=== PATIENT | female | born 1960 | race Caucasian/White ===

== ENCOUNTER 2016-09-12 12:47 | Observation (INO) ==
[2016-09-12] MEDS ORDERED: 0.9 % SODIUM CHLORIDE 1,000 ML IV ONE ×2 (12:57→12:59)
[2016-09-12] MEDS ORDERED: ACETAMINOPHEN 325 MG TABLET PO ONE (12:59)
[2016-09-12] MEDS ORDERED: OSELTAMIVIR PHOSPHATE 75 MG CAPSULE PO ONE (14:00)
[2016-09-12 14:09] LABS: Basophils # (Auto) 0 K/mcL (0.0-0.3); Basophils % (Auto) 0 % (0.0-2.0); Eosinophils # (Auto) 0 K/mcL (0.0-0.7); Eosinophils % (Auto) 0.1 % (0.0-7.0); Granulocytes % (Auto) 86.7 % (38.0-78.0); Lymphocytes # (Auto) 0.6 K/mcL (1.5-4.8); Lymphocytes % (Auto) 6.1 % (15.5-49.0); Mean Cell Volume 93.6 fL (80.0-100.0); Mean Corpuscular HGB Conc 32.2 g/dL (31.0-36.0); Mean Corpuscular Hemoglobin 30.1 pg (26.0-34.0); Monocytes # (Auto) 0.7 K/mcL (0.1-0.9); Monocytes % (Auto) 7.1 % (1.0-9.0); Platelet Count 235 K/mcL (140-440); RBC 5.06 M/mcL (4.00-5.20); Red Cell Distribution Width 13.2 % (11.5-14.5)
[2016-09-12 14:23] LABS: Appearance,Urine HAZY; Bacteria,Urine 0 /hpf (0); Bilirubin,Urine NEG (NEG); Color,Urine YELLOW; Glucose,Urine (UA) NEGATIVE (NEG); Leukocyte Esterase,Urine NEG /uL (NEG); Mucus,Urine FEW /hpf (0); Nitrate,Urine NEG (NEG); Protein,Urine NEG (NEG); Specific Gravity,Urine 1.026 (1.000-1.035); Urine Amorphous Crystals FEW /hpf (0); Urine Blood NEG mg/dL (<0.03); Urine RBC 2 /hpf (0-1); Urine Squamous Epithelial Cell 1 /hpf (0-4); Urine WBC 1 /hpf (0-4); Urobilinogen,Urine NEG (NEG)
--- NOTE | 2016-09-12 14:25 | XRay Report ---
CLINICAL INFORMATION: Fever COMPARISON: 05/26/2015 FINDINGS:The heart size, mediastinum and pulmonary vessels are unremarkable. The lungs are clear. There are no effusions. The bones and soft tissues are within normal limits. IMPRESSION: Normal chest. Interpreted and Authenticated by: Kevin Cardozo 09/12/16
[2016-09-12 14:27] LABS: ALT/SGPT 38 U/l (0-40); Albumin 4.5 gm/dL (3.2-5.2); Albumin/Globulin Ratio 1.6 (1.0-2.3); Alkaline Phosphatase 80 U/L (39-117); Blood Urea Nitrogen 15 mg/dl (6-20)
--- NOTE | 2016-09-12 14:49 | Emergency Department Note ---
Fever HPI - General Chief Complaint: Fever Stated Complaint: weakness, fever Time Seen by Provider: 09/12/16 12:51 Source: patient, EMS Mode of arrival: EMS Limitations: no limitations - History of Present Illness HPI Narrative: Patient seen yesterday after a fall, returns today. Baseline marginal independent status, history of MS progressive. Brought in by ambulance due to fever, malaise, unable to care for herself. Incontinent and soiled. Patient listless, poor historian. - Related Data Home Medications Medication Instructions Recorded Confirmed FLUoxetine HCL [PROzac] 40 mg PO DAILY 05/26/15 09/12/16 Gabapentin [Neurontin] 300 mg PO DAILY 05/26/15 09/12/16 OLANZapine [Zyprexa] 7.5 mg PO DAILY 05/26/15 09/12/16 buPROPion HCL [Bupropion Xl] 300 mg PO DAILY 05/26/15 09/12/16 Simvastatin [Zocor] 40 mg PO HS 09/12/16 09/12/16 levETIRAcetam [Levetiracetam] 500 mg PO DAILY 09/12/16 09/12/16 Allergies Allergy/AdvReac Type Severity Reaction Status Date / Time clindamycin Allergy Verified 09/11/16 11:59 Review of Systems Limitations: ROS unobtainable due to patients medical condition Fever PMH - Past Medical History Medical history: Reports: other (multiple sclerosis, advanced) Surgical history ED: Reports: other (unable to obtain history) Family history: Reports: unable to obtain - Social History smoking status: Never smoker Physical Exam - General Limitations: no limitations General appearance: lethargic, other (slowed mentation, hypersomnolent) - Head Head exam: atraumatic - Eye Eye exam: Present: normal appearance - ENT ENT exam: mucous membranes moist - Neck Neck exam: Present: normal inspection. Absent: lymphadenopathy - Chest Chest inspection: Present: normal inspection - Respiratory Respiratory exam: Present: normal lung sounds bilaterally. Absent: respiratory distress - Cardiovascular Cardiovascular exam: Present: regular rate, normal rhythm. Absent: systolic murmur - Abdominal Exam Abdominal exam: Present: soft. Absent: tenderness - External exam: Present: normal external exam, other (incontinent and soiled) - Extremities Exam Extremities exam: Present: other (laccid lower extremities, 2+ edema) - Back Exam Back exam: Present: normal inspection - Neurological Exam Neurological exam: Absent: alert, oriented X3 - Psychiatric Psychiatric exam: Present: flat affect - Skin Skin exam: Present: diaphoresis, other (cool, no pallor) Course Vital Signs Temperature 103.3 F H 09/12/16 12:50 Pulse Rate 97 H 09/12/16 12:50 Respiratory Rate 24 09/12/16 12:50 Blood Pressure 148/81 09/12/16 12:50 Pulse Oximetry (%) 93 09/12/16 12:50 Temperature 103.3 F H 09/12/16 13:30 Pulse Rate 96 H 09/12/16 14:24 Respiratory Rate 20 09/12/16 14:24 Blood Pressure 143/71 09/12/16 14:24 Pulse Oximetry (%) 98 09/12/16 14:24 Fever - Lab Data Lab results reviewed: Yes I reviewed the patient's lab results. Result diagrams: 09/12/16 13:20 09/12/16 13:20 Lab Results 09/12/16 09/12/16 09/12/16 Range/Units 13:20 13:20 13:20 WBC 9.5 (4.5-11.0) K/mcL RBC 5.06 (4.00-5.20) M/mcL Hgb 15.2 H (12.0-15.0) g/dL Hct 47.3 (36.0-48.0) % MCV 93.6 (80.0-100.0) fL MCH 30.1 (26.0-34.0) pg MCHC 32.2 (31.0-36.0) g/dL RDW 13.2 (11.5-14.5) % Plt Count 235 (140-440) K/mcL MPV 7.9 (7.4-10.4) fL Gran % 86.7 H (38.0-78.0) % Lymph % (Auto) 6.1 L (15.5-49.0) % Lucas % (Auto) 7.1 (1.0-9.0) % Eos % (Auto) 0.1 (0.0-7.0) % Baso % (Auto) 0 (0.0-2.0) % Gran # 8.2 H (1.8-8.0) K/mcL Lymph # 0.6 L (1.5-4.8) K/mcL Lucas # 0.7 (0.1-0.9) K/mcL Eos # 0 (0.0-0.7) K/mcL Baso # 0 (0.0-0.3) K/mcL VBG Lactic Acid 1.5 (0.5-2.2) mmol/L Sodium 137 (133-145) mmol/L Potassium 4.1 (3.3-5.1) mmol/L Chloride 96 (96-108) mmol/L Carbon Dioxide 26 (22-30) mmol/L Anion Gap 15.0 (8-16) BUN 15 (6-20) mg/dl Creatinine 0.8 (0.6-1.1) mg/dl GFR Calculation 81 Glucose 128 H (70-105) mg/dL Calcium 9.1 (8.6-10.4) mg/dl Total Bilirubin 0.4 (0.0-1.0) mg/dL AST 26 (0-37) U/l ALT 38 (0-40) U/l Alkaline Phosphatase 80 (39-117) U/L Total Protein 7.4 (5.9-8.4) gm/dL Albumin 4.5 (3.2-5.2) gm/dL Globulin 2.9 (2.2-3.7) gm/dL Albumin/Globulin Ratio 1.6 (1.0-2.3) Urine Color Urine Appearance Urine pH (5.0-9.0) Ur Specific [place] (1.000-1.035) Urine Protein (NEG) mg/dL Urine Glucose (UA) (NEG) mg/dL Urine Ketones (NEG) mg/dL Urine Occult Blood (<0.03) mg/dL Urine Nitrate (NEG) Urine Bilirubin (NEG) mg/dL Urine Urobilinogen (NEG) mg/dL Ur Leukocyte Esterase (NEG) /uL Urine RBC (0-1) /hpf Urine WBC (0-4) /hpf Ur Squamous Epith Cells (0-4) /hpf Amorphous Crystals (0) /hpf Urine Bacteria (0) /hpf Urine Mucus (0) /hpf Ur Culture Indicated? 09/12/16 Range/Units 13:55 WBC (4.5-11.0) K/mcL RBC (4.00-5.20) M/mcL Hgb (12.0-15.0) g/dL Hct (36.0-48.0) % MCV (80.0-100.0) fL MCH (26.0-34.0) pg MCHC (31.0-36.0) g/dL RDW (11.5-14.5) % Plt Count (140-440) K/mcL MPV (7.4-10.4) fL Gran % (38.0-78.0) % Lymph % (Auto) (15.5-49.0) % Lucas % (Auto) (1.0-9.0) % Eos % (Auto) (0.0-7.0) % Baso % (Auto) (0.0-2.0) % Gran # (1.8-8.0) K/mcL Lymph # (1.5-4.8) K/mcL Lucas # (0.1-0.9) K/mcL Eos # (0.0-0.7) K/mcL Baso # (0.0-0.3) K/mcL VBG Lactic Acid (0.5-2.2) mmol/L Sodium (133-145) mmol/L Potassium (3.3-5.1) mmol/L Chloride (96-108) mmol/L Carbon Dioxide (22-30) mmol/L Anion Gap (8-16) BUN (6-20) mg/dl Creatinine (0.6-1.1) mg/dl GFR Calculation Glucose (70-105) mg/dL Calcium (8.6-10.4) mg/dl Total Bilirubin (0.0-1.0) mg/dL AST (0-37) U/l ALT (0-40) U/l Alkaline Phosphatase (39-117) U/L Total Protein (5.9-8.4) gm/dL Albumin (3.2-5.2) gm/dL Globulin (2.2-3.7) gm/dL Albumin/Globulin Ratio (1.0-2.3) Urine Color Yellow Urine Appearance Hazy Urine pH 5.0 (5.0-9.0) Ur Specific [place] 1.026 (1.000-1.035) Urine Protein Neg (NEG) mg/dL Urine Glucose (UA) Negative (NEG) mg/dL Urine Ketones 5/tr A (NEG) mg/dL Urine Occult Blood Neg (<0.03) mg/dL Urine Nitrate Neg (NEG) Urine Bilirubin Neg (NEG) mg/dL Urine Urobilinogen Neg (NEG) mg/dL Ur Leukocyte Esterase Neg (NEG) /uL Urine RBC 2 H (0-1) /hpf Urine WBC 1 (0-4) /hpf Ur Squamous Epith Cells 1 (0-4) /hpf Amorphous Crystals Few A (0) /hpf Urine Bacteria 0 (0) /hpf Urine Mucus Few (0) /hpf Ur Culture Indicated? No - Radiology Data Radiology results reviewed: Yes I reviewed the patient's radiology results. no acute infiltrate Disposition Clinical Impression: Influenza, Multiple sclerosis, Weakness generalized Summary: patient's care accepted by Dr. Dill Disposition: Xfer As Inpt ([facility]) Condition: Fair Referrals: Sridhar Ricketts MD [Primary Care Provider] -
[2016-09-12] MEDS ORDERED: ONDANSETRON 4 MG/2 ML VIAL ONE (16:21)
[2016-09-12] MEDS ORDERED: BISACODYL 10 MG SUPP.RECT PR PRN ×2 (16:44→17:13)
[2016-09-12] MEDS ORDERED: ONDANSETRON 4 MG/2 ML VIAL IV PRN ×2 (16:44→17:13)
[2016-09-12] MEDS ORDERED: MAGNESIUM HYDROXIDE 30 ML ORAL.SUSP PO PRN ×2 (16:44→17:13)
[2016-09-12] MEDS ORDERED: FLEETS ADULT ENEMA PR PRN ×2 (16:44→17:13)
[2016-09-12] MEDS ORDERED: ACETAMINOPHEN 325 MG TABLET PO PRN (16:44)
--- NOTE | 2016-09-12 16:48 | Internal Med History&Physical ---
Medical - H&P: [facility] Patient information: Note initiated : 09/12/16 at 4:45 pm Service Date, if different from initiated Date: [] Patient: Charley Hidalgo a 56 y/o F admitted on for weakness, fever. Chief Complaint: [] Chief complaint: Recurrent falls/ Fever History of present illness: Ms. Hidalgo is a 56 year old female who presented to the ER yesterday and today for recurrent falls and fever The patient has Multiple sclerosis, seems progressive type and has cognitive dysfunction. She is a poor history bag loader and due to her memory noted that she does not remember much. She has some correction memory, but short term memory is not very good, not sure why she is in the ER, not sure if she was here yesterday. Thinks that something is wrong with her electrolytes. Her sister was present who noted that this is near her baseline, but she seems to have gotten worse now over the last couple of weeks, she has had 2 falls, one 2 weeks ago and one yesterday. She was here yesterday and was discharged back home with OT follow up. Today she presents again brought in by EMS for fever of 103.7, and progressive weakness. She denies any other complaints. But nursing noted her to be soiled in her clothes. She had one episode of vomiting in the ER. I called the patients neurologist Dr Bertin Figueroa, who knows the patient well, noted that she was daignosed MS recently over last 8 yrs, which usually indicates a poor prognosis. The patient has a poor functional status, usually needs a four wheel walker to ambulate and WC at times. I reviewed the case with her and she believes that the patient likely has worsening of MS symptoms due to her fever, and not a acute relapse of MS. She would like to be notified if new lesions of MS are found on the MRI in which case she would like to use 1gm solumedrol x 3 days. Code status is full code for now, given that her sister was not sure what she wanted and I do not think we can ask the patient in her current mental condition. ROS unobtainable: due to mental status Medical - H&P: [facility] Medical history: Medical History Influenza (Acute) Multiple sclerosis (Acute) Weakness generalized (Acute) Chest pain, pleuritic (Acute) Fall (Acute) Pertinent family history: unable to review due to mental condition. Social history: lives by self has help at home usually has a 4 wheel walker at home. denies drugs, etoh or smoking Medical - H&P: Meds Home Medications Medication Instructions Recorded Confirmed Type FLUoxetine HCL [PROzac] 40 mg PO DAILY 05/26/15 09/12/16 History Gabapentin [Neurontin] 300 mg PO DAILY 05/26/15 09/12/16 History OLANZapine [Zyprexa] 7.5 mg PO DAILY 05/26/15 09/12/16 History buPROPion HCL [Bupropion Xl] 300 mg PO DAILY 05/26/15 09/12/16 History Simvastatin [Zocor] 40 mg PO HS 09/12/16 09/12/16 History levETIRAcetam [Levetiracetam] 500 mg PO DAILY 09/12/16 09/12/16 History Allergies Allergy/AdvReac Type Severity Reaction Status Date / Time clindamycin Allergy Verified 09/11/16 11:59 Medical - H&P: Exam - Constitutional Vitals: Temp Pulse Resp BP Pulse Ox 101.7 F H 102 H 24 144/96 95 09/12/16 16:17 09/12/16 16:17 09/12/16 16:17 09/12/16 16:17 09/12/16 16:17 General appearance: morbidly obese, no acute distress - Head Head exam: Present: atraumatic, normal inspection, normocephalic - Eye Eye exam: Present: PERRL. Absent: periorbital swelling, periorbital tenderness , scleral icterus - ENT ENT exam: Present: mucous membranes dry - Neck Neck exam: Present: normal inspection - Respiratory Respiratory exam: Present: normal respiratory exam. Absent: accessory muscle use, respiratory distress, rhonchi, stridor, wheezes - Cardiovascular Cardiovascular exam: Present: normal rate and rhythm, +S1, +S2 - GI/Abdominal GI/Abdominal exam: Present: normal bowel sounds, soft. Absent: firm, guarding, tenderness - Extremities Exam Extremities exam: Absent: pedal edema, tenderness - Back Exam Back exam: Present: normal inspection. Absent: paraspinal tenderness - Neurological Exam Additional comments: aoox2 aware of place and self able to move all extremities, approx 3/5 strength sensory system noted to be decreased on left arm, to coarse touch, pt not sure if new or old. reflex brisk in the knees, plantars everted pupils reactive to light, able to see light in both eyes. CN nerrves intact. - Psychiatric Psychiatric exam: Present: flat affect - Skin Skin exam: Present: warm. Absent: rash, vesicles Medical - H&P: Reslt - Labs CBC & Chem 7: 09/12/16 13:20 09/12/16 13:20 Labs: Short CBC 09/12/16 Range/Units 13:20 WBC 9.5 (4.5-11.0) K/mcL Hgb 15.2 H (12.0-15.0) g/dL Hct 47.3 (36.0-48.0) % Plt Count 235 (140-440) K/mcL BMP 09/12/16 13:20 Sodium 137 Potassium 4.1 Chloride 96 Carbon Dioxide 26 BUN 15 Creatinine 0.8 Glucose 128 H Calcium 9.1 Liver Function 09/12/16 Range/Units 13:20 Total Bilirubin 0.4 (0.0-1.0) mg/dL AST 26 (0-37) U/l ALT 38 (0-40) U/l Alkaline Phosphatase 80 (39-117) U/L Albumin 4.5 (3.2-5.2) gm/dL Urine 09/12/16 Range/Units 13:55 Urine Color Yellow Urine Appearance Hazy Urine pH 5.0 (5.0-9.0) Ur Specific [place] 1.026 (1.000-1.035) Urine Protein Neg (NEG) mg/dL Urine Glucose (UA) Negative (NEG) mg/dL Medical - H&P: A/P (1) Influenza Current visit: Yes Status: Acute (2) Multiple sclerosis Current visit: Yes Status: Acute (3) Weakness generalized Current visit: Yes Status: Acute - Narrative A/P Narrative: Pt has Influenza which is likely the source of her WEakness She lives by herself in home and needs extensive help to carry out ADL given her fever and worsening condition, she was unable to care for her self MS attack is possible and MRI head is being done to see if any new acute lesions are present. will treat with high dose of steroids if noted. TReat influenza with tamiflu, tylenol OT/ PT ST consult DVT hep sq bid Diet regular
[2016-09-12] MEDS: ACETAMINOPHEN 325 MG TABLET PO PRN (18:22)
[2016-09-12] MEDS ORDERED: HEPARIN 5,000 UNIT/ML VIAL SQ SCH (21:00)
[2016-09-12] MEDS ORDERED: FAMOTIDINE/PF 20 MG/2 ML VIAL IV SCH (21:00)
[2016-09-12] MEDS ORDERED: SIMVASTATIN 40 MG TABLET PO SCH (21:00)
[2016-09-12] MEDS ORDERED: OSELTAMIVIR PHOSPHATE 75 MG CAPSULE PO SCH (21:00)
[2016-09-12] MEDS: HEPARIN 5,000 UNIT/ML VIAL SQ SCH (21:12)
[2016-09-12] MEDS: FAMOTIDINE/PF 20 MG/2 ML VIAL IV SCH (21:12)
[2016-09-12] MEDS: OSELTAMIVIR PHOSPHATE 75 MG CAPSULE PO SCH (21:12)
[2016-09-12] MEDS: SIMVASTATIN 40 MG TABLET PO SCH (21:12)
[2016-09-12] MEDS: 0.9 % SODIUM CHLORIDE 10 ML SYRINGE IV SCH (21:13)
[2016-09-12] MEDS ORDERED: 0.9 % SODIUM CHLORIDE 10 ML SYRINGE IV SCH (22:00)
[2016-09-12] MEDS: IBUPROFEN 200 MG TABLET PO PRN (22:39)
[2016-09-13] MEDS: ACETAMINOPHEN 325 MG TABLET PO PRN ×3 (02:31→20:18)
[2016-09-13] MEDS: 0.9 % SODIUM CHLORIDE 10 ML SYRINGE IV SCH ×3 (05:27→20:17)
[2016-09-13 08:09] LABS: ALT/SGPT 31 U/l (0-40); Albumin 3.5 gm/dL (3.2-5.2); Albumin/Globulin Ratio 1.5 (1.0-2.3); Alkaline Phosphatase 63 U/L (39-117); Bilirubin,Direct < 0.2 mg/dL (0.0-0.3); Blood Urea Nitrogen 12 mg/dl (6-20); Gamma Glutamyl Transpeptidase 83 U/L (5-36); Magnesium 2.1 mg/dL (1.6-2.5); Phosphorous 2.9 mg/dL (2.7-4.5); Uric Acid 1.6 mg/dL (2.5-8.0)
[2016-09-13] MEDS: FAMOTIDINE/PF 20 MG/2 ML VIAL IV SCH ×2 (08:31→20:17)
[2016-09-13] MEDS: HEPARIN 5,000 UNIT/ML VIAL SQ SCH ×2 (08:31→20:17)
[2016-09-13] MEDS: buPROPion 150 MG TAB.XL.24H PO SCH (08:31)
[2016-09-13] MEDS: GABAPENTIN 300 MG CAPSULE PO SCH (08:32)
[2016-09-13] MEDS: OLANZapine 2.5 MG TABLET PO SCH (08:32)
[2016-09-13] MEDS: levETIRAcetam 500 MG TABLET PO SCH (08:32)
[2016-09-13] MEDS: FLUoxetine HCL 20 MG CAPSULE PO SCH (08:32)
[2016-09-13] MEDS: OSELTAMIVIR PHOSPHATE 75 MG CAPSULE PO SCH ×2 (08:32→20:16)
[2016-09-13] MEDS ORDERED: GABAPENTIN 300 MG CAPSULE PO SCH (09:00)
[2016-09-13] MEDS ORDERED: FLUoxetine HCL 20 MG CAPSULE PO SCH (09:00)
[2016-09-13] MEDS ORDERED: OLANZAPINE 7.5 MG PO SCH (09:00)
[2016-09-13] MEDS ORDERED: buPROPion 150 MG TAB.XL.24H PO SCH (09:00)
[2016-09-13] MEDS ORDERED: levETIRAcetam 500 MG TABLET PO SCH (09:00)
--- NOTE | 2016-09-13 10:00 | XRay Report ---
CLINICAL INFORMATION: Pain COMPARISON: None. TECHNIQUE: FINDINGS: The acromioclavicular and glenohumeral joint spaces are normal in width and alignment, without arthritic change. There is no fracture or focal osseous abnormality. Soft tissues are unremarkable. IMPRESSION: Normal exam. Interpreted and Authenticated by: Kevin Cardozo 09/13/16
[2016-09-13 10:02] LABS: Mean Cell Volume 93.4 fL (80.0-100.0); Mean Corpuscular HGB Conc 32.3 g/dL (31.0-36.0); Mean Corpuscular Hemoglobin 30.2 pg (26.0-34.0); Platelet Count 184 K/mcL (140-440); RBC 4.74 M/mcL (4.00-5.20); Red Cell Distribution Width 13.2 % (11.5-14.5)
--- NOTE | 2016-09-13 10:08 | Magnetic Resonance Report ---
CLINICAL INFORMATION: Chronic MS. Recurrent falls and fever COMPARISON: Brain MRI from three years prior - 07/14/2013. TECHNIQUE: Sagittal T1 FLAIR, axial diffusion ADC, T1 FLAIR, T2 FLAIR propeller, T2 propeller gradient, T1 post Magnevist and coronal T1 FLAIR post Magnevist images were acquired. FINDINGS: The ventricles, sulci, fissures and cisterns are symmetrically enlarged compatible with mild atrophy - more than is typically seen in a patient this age. Multiple chronic MS plaques in the deep periventricular white matter, were carefully compared the remote MR three years ago, and are unchanged. Scattered chronic plaque in the subcortical white matter of the parafalcine frontal and parietal lobes, the right pontomedullary junction, and the right middle cerebellar peduncle are also stable. There are no new plaques or regions of restricted diffusion or enhancement to suggest acute MS inflammation. The signal void in intracerebral arteries, extra-axial cranial nerves, pituitary and orbits are normal. Mild mucosal thickening left maxillary and ethmoid sinuses. IMPRESSION: 1. Scattered chronic MS plaques with confluence in the deep periventricular white matter and also scattered within the subcortical white matter, the right pontomedullary junction and right middle cerebellar peduncle are identical to a remote brain MRI three years ago. There is no evidence of acute plaque inflammation and no evidence of infarct or other superimposed neurological process. 2. Moderate right sphenoid bilateral ethmoid and mild left maxillary sinusitis - new from prior study. Interpreted and Authenticated by: Kevin Cardozo 09/13/16
[2016-09-13 10:16] LABS: Band Neutrophils % 32 % (0-10); Lymphocytes % 13 % (15-49); Monocytes % (Manual) 6 % (1-9); Platelet Estimate NORMAL (NORMAL); RBC Morphology NORMAL (NORMAL); Segmented Neutrophils % 49 % (38-78)
--- NOTE | 2016-09-13 11:00 | Internal Med Progress Note ---
Medical - PN: Subj Patient information: Note initiated : 09/13/16 at 10:57 am Service Date, if different from initiated Date: [] Patient: Charley Hidalgo 56 y/o F admitted on 09/12/16 for weakness, fever. Chief Complaint: [] Interval history: This is a 56 yr female who presented to the ER with fever and weakness, s/p falls h/o multiple sclerosis. 09/12: patient admitted to the hospital due to generalized weakness, worsening of mentation, worsening of physical condition, due to influenza and exacerbation of MS due to fever. MRI head done was negative for new lesions. Workup in the ER neg for any other focus of infection. Placed on tamiflu. 09/13: Pt was febrile overnight, not responding well to tylenol, therefore Ibuprofen was added. She responded well to ibuprofen. Plan to continue tamiflu D2/5 today. She did not do well with PT this AM, she will likely benefit from additional PT. Labs this AM unremarkable except bandemia noted on cbc. Will follow for now. She otherwise does not report any other acute condition. Plan to give BID PT, work with case management for appropriate D/C plan. likely D/C in AM if remains afebrile and improves functionality. Will also need to reverify her home med list given that she is not on any medications for MS. Pertinent ROS: Denies headache, dizziness Denies chest pain, palpitations Denies cough or shortness of breath Denies abdominal pain, nausea or vomiting. - Constitutional Vitals: Vital Signs Temp Pulse Resp BP Pulse Ox 98.7 F 87 20 120/60 93 09/13/16 08:00 09/13/16 07:50 09/13/16 08:00 09/13/16 08:00 09/13/16 08:00 Period Temp Pulse Resp BP Sys/Brennan Pulse Ox Last 24 Hr 98.7 F-104.4 F 86-97 14-20 100-126/41-69 90-95 Intake and Output 09/12/16 09/13/16 09/13/16 21:59 05:59 13:59 Intake Total 1000 / 1000 480 / 480 Output Total 850 / 850 Balance 1000 / 1000 -370 / -370 Weight 238 lb 6.4 oz Intake & Output: Intake & Output 09/12/16 09/13/16 09/13/16 21:59 05:59 13:59 Intake Total 1000 / 1000 480 / 480 Output Total 850 / 850 Balance 1000 / 1000 -370 / -370 Weight 238 lb 6.4 oz Intake: IV 1000 / 1000 Sodium Chloride 0.9% 1, 1000 / 1000 000 ml @ Wide Open IV . Q0M ONE Rx#:[id number] Oral 480 / 480 Output: Urine Catheter Amount 850 / 850 Exam: Constitutional; Afebrile, cooperative, alert, not in distress. Eyes- No icterus, No periorbital swelling Ears- Ext ear normal, hearing normal to conversation. Neck- Midline trachea, supple Respiratory system: Air Entry equal on both sides, No crackles or wheezing, no rhonchi. CVS- Rate rhythm regular, S1,S2 heard, no gallop, no rub. Abdomen- Soft nontender abdomen, no organomegaly, no tenderness, no guarding or rigidity, [employer]- AOOx1, moving all extremities, no focal deficit noted. Medical - PN: Obj Da - Labs CBC & Chem 7: 09/13/16 07:42 09/13/16 06:12 Labs: Abnormal Lab Results 09/13/16 09/13/16 07:42 06:12 Band Neutrophils % 32 H Lymphocytes % 13 L Carbon Dioxide 20 L Uric Acid 1.6 L Calcium 8.2 L GGT 83 H Lactate Dehydrogenase 281 H Meds: Medications Acetaminophen (Tylenol) 650 mg PO Q6HP PRN PRN Reason: PAIN/FEVER > 101 Last Admin: 09/13/16 02:31 Dose: 650 mg Bisacodyl (Dulcolax) 10 mg [place] Q2-3DAYS PRN PRN Reason: Constipation Bupropion HCl (Wellbutrin Xl) 300 mg PO DAILY [facility] Last Admin: 09/13/16 08:31 Dose: 300 mg Famotidine (Pepcid) 20 mg IV Q12 [facility] Last Admin: 09/13/16 08:31 Dose: 20 mg Fluoxetine HCl (Prozac) 40 mg PO DAILY [facility] Last Admin: 09/13/16 08:32 Dose: 40 mg Gabapentin (Neurontin) 300 mg PO DAILY [facility] Last Admin: 09/13/16 08:32 Dose: 300 mg Heparin Sodium (Porcine) (Heparin) 5,000 unit SQ Q12 [facility] Last Admin: 09/13/16 08:31 Dose: 5,000 unit Ibuprofen (Motrin) 400 mg PO QIDP PRN PRN Reason: Fever >101 Last Admin: 09/12/16 22:39 Dose: 400 mg Levetiracetam (Keppra) 500 mg PO DAILY [facility] Last Admin: 09/13/16 08:32 Dose: 500 mg Magnesium Hydroxide (Milk Of Magnesia) 30 ml PO DAILYP PRN PRN Reason: Constipation Olanzapine (Zyprexa) 7.5 mg PO DAILY [facility] Last Admin: 09/13/16 08:32 Dose: 7.5 mg Ondansetron HCl (Zofran) 4 mg IV Q6HP PRN PRN Reason: Nausea And Vomiting Oseltamivir Phosphate (Tamiflu) 75 mg PO BID [facility] Last Admin: 09/13/16 08:32 Dose: 75 mg Simvastatin (Zocor) 40 mg PO HS [facility] Last Admin: 09/12/16 21:12 Dose: 40 mg Sodium Biphosphate/Sodium Phosphate (Fleets Adult) 1 dose [place] Q3-4DAYS PRN PRN Reason: Constipation Sodium Chloride (Saline Flush) 10 ml IV Q8 [facility] Last Admin: 09/13/16 05:27 Dose: 10 ml Medical - PN: A/P - Time Spent With Patient Total time spent is greater than 50% in coordination of care (as documented) at patient's floor/unit and/or counseling patient: (1) Influenza Status: Acute Current Visit: Yes (2) Multiple sclerosis Status: Acute Current Visit: Yes (3) Weakness generalized Status: Acute Current Visit: Yes - Narrative A/P Narrative: IV fluids Tamiflu Continue Physical therapy. Tylenol/ Ibuprofen for fever likely d/c in AM if condition improves. Medical - PN: Qual - Stroke Symptom Onset Unknown: No - VTE Deep Vein Thrombosis/Pulmonary Embolism Present on Admission: No
[2016-09-13] MEDS: LACTATED RINGERS 1,000 ML IV SCH ×2 (11:20→23:12)
[2016-09-13] MEDS: TERIFLUNOMIDE 14 MG PO SCH (12:49)
[2016-09-13] MEDS: IBUPROFEN 200 MG TABLET PO PRN (14:47)
[2016-09-13] MEDS: SIMVASTATIN 40 MG TABLET PO SCH (20:16)
[2016-09-13] MEDS: ASPIRIN 81 MG TAB.CHEW PO SCH (20:17)
[2016-09-14] MEDS: 0.9 % SODIUM CHLORIDE 10 ML SYRINGE IV SCH (06:01)
[2016-09-14] MEDS ORDERED: PIPERACILLIN SODIUM/TAZOBACTAM 3.375 GM in DEXTROSE 5% IN WATER 50 ML IV SCH (08:00)
[2016-09-14] MEDS: FAMOTIDINE/PF 20 MG/2 ML VIAL IV SCH (09:26)
[2016-09-14] MEDS: buPROPion 150 MG TAB.XL.24H PO SCH (09:30)
[2016-09-14] MEDS: FLUoxetine HCL 20 MG CAPSULE PO SCH (09:30)
[2016-09-14] MEDS: ASPIRIN 81 MG TAB.CHEW PO SCH (09:30)
[2016-09-14] MEDS: OSELTAMIVIR PHOSPHATE 75 MG CAPSULE PO SCH (09:31)
[2016-09-14] MEDS: HEPARIN 5,000 UNIT/ML VIAL SQ SCH (09:31)
[2016-09-14] MEDS: OLANZapine 2.5 MG TABLET PO SCH (09:31)
[2016-09-14] MEDS: GABAPENTIN 300 MG CAPSULE PO SCH (09:31)
[2016-09-14] MEDS: levETIRAcetam 500 MG TABLET PO SCH (09:31)
[2016-09-14] MEDS: TERIFLUNOMIDE 14 MG PO SCH (09:32)
--- NOTE | 2016-09-14 10:52 | Discharge Summary ---
Medical - DS: Prov Patient information: Note initiated : 09/14/16 at 10:50 am Service Date, if different from initiated Date: [] Patient: Charley Hidalgo 56 y/o F admitted on 09/12/16 for Weakness, Fever/ Influenza. Chief Complaint: [] Date of admission: 09/12/16 18:00 Discharge date: 09/14/16 Primary care physician: [Dr. Sridhar Ricketts, phone [phone]] Admitting clinician: Puma Dill Attending physician on discharge: Eve Rodríguez Medical - DS: Meds - Discharge Medications Prescriptions: Amoxicillin/Potassium Clav [Augmentin] 875 mg PO Q12H #20 tablet Oseltamivir Phosphate [Tamiflu] 75 mg PO BID #7 capsule Active and Home Medications: Home Medications FLUoxetine HCL [PROzac] 40 mg PO DAILY 05/26/15 [History Confirmed 09/12/16 Last Taken Unknown] Gabapentin [Neurontin] 300 mg PO DAILY 05/26/15 [History Confirmed 09/12/16 Last Taken Unknown] OLANZapine [Zyprexa] 7.5 mg PO DAILY 05/26/15 [History Confirmed 09/12/16 Last Taken Unknown] buPROPion HCL [Bupropion Xl] 300 mg PO DAILY 05/26/15 [History Confirmed Last Taken Unknown] Aspirin [Jason Chewable Aspirin] 81 mg PO BID 09/12/16 [History Confirmed Last Taken Unknown] Simvastatin [Zocor] 40 mg PO HS 09/12/16 [History Confirmed 09/12/16 Last Taken 09/11/16 09:00] Teriflunomide [Aubagio] 14 mg PO DAILY 09/12/16 [History Confirmed 09/12/16 Last Taken Unknown] levETIRAcetam [Levetiracetam] 500 mg PO DAILY 09/12/16 [History Confirmed Last Taken Unknown] Medical - DS: Hosp Hospital course: Ms. Hidalgo is a 56 year old female September 12, 2016: History of present illness: Ms. Hidalgo is a 56 year old female who presented to the ER yesterday and today for recurrent falls and fever. The patient has Multiple sclerosis, seems progressive type and has cognitive dysfunction. She is a poor history elevator repairer and due to her memory noted that she does not remember much. She has some rat exterminator memory, but short term memory is not very good, not sure why she is in the ER, not sure if she was here yesterday. Thinks that something is wrong with her electrolytes. Her sister was present who noted that this is near her baseline, but she seems to have gotten worse now over the last couple of weeks, she has had 2 falls, one 2 weeks ago and one yesterday. She was here yesterday and was discharged back home with OT follow up. Today she presents again brought in by EMS for fever of 103.7, and progressive weakness. She denies any other complaints. But nursing noted her to be soiled in her clothes. She had one episode of vomiting in the ER. I called the patients neurologist Dr Bertin Figueroa, who knows the patient well, noted that she was daignosed MS recently over last 8 yrs, which usually indicates a poor prognosis. The patient has a poor functional status, usually needs a four wheel walker to ambulate and WC at times. I reviewed the case with her and she believes that the patient likely has worsening of MS symptoms due to her fever, and not a acute relapse of MS. She would like to be notified if new lesions of MS are found on the MRI in which case she would like to use 1gm solumedrol x 3 days. Code status is full code for now, given that her sister was not sure what she wanted and I do not think we can ask the patient in her current mental condition. September 14, 2016: this patient had a positive screen for influenza in the emergency room. She had generalized weakness and was admitted for observation. She was started on Tamifluand IV fluids. over the last 2 days her fever has gradually defervesced. She continues to be severely weak, and is nowhere near her baseline, where she could live alone, and transfer independently. -brain MRI from admission showed moderate right sphenoid and bilateral ethmoid and mild left maxillary sinusitis. there were an mass plaques noted in the white matter, without significant change from 3 years ago. Today, the patient continues to have mild confusion. she was not able to tell me initially if she had a chronic Perea catheter at home but apparently she does not. She does report significant weakness, which is worse than her baseline. She denies chest pain or shortness of breath or GI symptoms. My understanding is that she is not generally incontinent of urine at home, but was here. on review of systems today, she does note that she has a bit of a sore throat, and addition to feeling weak and a bit confused.she says she has had a mild cough, which has been minimally productive. Medical History Influenza (Acute) Multiple sclerosis (Acute) Weakness generalized (Acute) Chest pain, pleuritic (Acute) Fall (Acute) Meds: Medications Acetaminophen (Tylenol) 650 mg PO Q6HP PRN PRN Reason: PAIN/FEVER > 101 Last Admin: 09/13/16 02:31 Dose: 650 mg Bisacodyl (Dulcolax) 10 mg LA Q2-3DAYS PRN PRN Reason: Constipation Bupropion HCl (Wellbutrin Xl) 300 mg PO DAILY [facility] Last Admin: 09/13/16 08:31 Dose: 300 mg Famotidine (Pepcid) 20 mg IV Q12 [facility] Last Admin: 09/13/16 08:31 Dose: 20 mg Fluoxetine HCl (Prozac) 40 mg PO DAILY [facility] Last Admin: 09/13/16 08:32 Dose: 40 mg Gabapentin (Neurontin) 300 mg PO DAILY [facility] Last Admin: 09/13/16 08:32 Dose: 300 mg Heparin Sodium (Porcine) (Heparin) 5,000 unit SQ Q12 [facility] Last Admin: 09/13/16 08:31 Dose: 5,000 unit Ibuprofen (Motrin) 400 mg PO QIDP PRN PRN Reason: Fever >101 Last Admin: 09/12/16 22:39 Dose: 400 mg Levetiracetam (Keppra) 500 mg PO DAILY [facility] Last Admin: 09/13/16 08:32 Dose: 500 mg Magnesium Hydroxide (Milk Of Magnesia) 30 ml PO DAILYP PRN PRN Reason: Constipation Olanzapine (Zyprexa) 7.5 mg PO DAILY [facility] Last Admin: 09/13/16 08:32 Dose: 7.5 mg Ondansetron HCl (Zofran) 4 mg IV Q6HP PRN PRN Reason: Nausea And Vomiting Oseltamivir Phosphate (Tamiflu) 75 mg PO BID [facility] Last Admin: 09/13/16 08:32 Dose: 75 mg Simvastatin (Zocor) 40 mg PO HS [facility] Last Admin: 09/12/16 21:12 Dose: 40 mg Sodium Biphosphate/Sodium Phosphate (Fleets Adult) 1 dose LA Q3-4DAYS PRN PRN Reason: Constipation Sodium Chloride (Saline Flush) 10 ml IV Q8 [facility] Last Admin: 09/13/16 05:27 Dose: 10 ml allergies: Include walnuts and clindamycin. social history: The patient lives alone, but does have caregivers that come in at least 5 days a week for a couple of hours. She can normally get around in a wheelchair and does have a walker. She apparently denied drug alcohol or tobacco use. on physical exam, she is a well-developed well-nourished white female in no acute distress. neckappears supple without obvious lymphadenopathy or JVD. Cardiac exam shows regular rate and rhythm. Lungs: breath sounds are a bit on the course I today. Abdomen is soft and nontender. Extremities show no significant edema. Neurologic exam:The patient exhibits generalized weakness, although she does move her arms. The nurses tell me she needed help just turning over in bed, however. She reports she really has no strength to move her legs today, but normally does have some movement in them at baseline. assessment and plan: #1. Severe weakness. -This appears to be mainly due to an acute case of influenza. she also,however, has evidence of sinusitison her MRI, which may be acute. Because she is too weak to return home to live alone, she will be transferred to rehabilitation today, for consideration of physical and occupational therapies. The goal is to get her back to her baseline. #2. Infectious disease. She will continue 7 more days of Tamiflu, to complete a ten-day course. I will also start her on oral Augmentin, to cover for possible sinusitis. She did receive 1 dose of Zosyn today. #3.neurologic. This patient does have multiple sclerosis. Dr. Dill did speak with her neurologist, who felt that her current symptoms are more likely due to acute illness, rather than her MS. We did resume her usual multiple sclerosis medications. #4. DVT prophylaxis: Subcutaneous heparin. #5. . The patient is too weak to transfer to the commode, so Perea catheter was placed. This can probably be removed in a few days, once her strength and ability to transfer, improves. #6. CODE STATUS: she has been a full code while here, but this should be further clarified once her mental status is back to baseline. Her sister did not want to make that decision for her. Discharge diagnosis: cute influenza, with severe weakness. Possibly acute sinusitis. Multiple s Secondary discharge diagnosis: Multiple sclerosis. - Time Spent with Patient Total time spent providing and/or coordinating discharge services: Greater than 30 minutes (greater than 30 minutes was spent reviewing the patient 's chart and test results, interviewing and examining her, reviewing plan of care with the team, as well as with the patient, and writing discharge orders.) Medical - DS: Exam - Constitutional Vitals: Vital Signs Temp Pulse Resp BP BP Pulse Ox 09/14/16 07:17 99.6 F 20 144/81 96 09/14/16 03:12 99.5 F 86 16 125/64 96 09/13/16 23:13 98.7 F 83 16 110/47 94 09/13/16 20:18 99.8 F H 09/13/16 19:34 99.8 F H 92 H 16 111/52 93 09/13/16 17:30 99.5 F 09/13/16 15:38 100.0 F H 94 H 24 132/52 93 09/13/16 14:45 99.1 F 09/13/16 12:49 100.6 F H 09/13/16 12:28 102 F H 09/13/16 12:13 100.2 F H 24 148/90 92 Intake and Output 09/13/16 09/14/16 09/14/16 21:59 05:59 13:59 Intake Total 340 / 340 1797 / 1797 Output Total 1025 / 1025 1025 / 1025 Balance -685 / -685 772 / 772 Intake: IV 997 / 997 Lactated Ringers 1,000 ml 997 / 997 @ 84 mls/hr IV .[id number] [facility] Rx#:[id number] Oral 340 / 340 800 / 800 Output: Urine Catheter Amount 1025 / 1025 1025 / 1025 Other: Meal Dinner Breakfast Percent of Meal Consumed 100% 75% Feeding Ability Assist with Tray Set Up Weight 238 lb Medical - DS: Data Labs on day of discharge: influenza screen from the emergency room, was reportedly positive. CBC from September 13; Shows white blood cell count of 10,000, hemoglobin 14, hematocrit 44, platelets 184,000. Differential shows 32% band forms Differential from September 12 showed 1200 granulocytes and only 600 lymphocytes, which was decreased. Lactic acid from September 12 was 1.5, normal. Chemistry panel was essentially normal, with uric acid of 1.6, total calcium low at 8.2, GGT mildly elevated at 83, LDH of 281. Albumin is normal at 3.5 Urinalysis showed a trace ketones and otherwise was essentially normal.next Blood and urine cultures are negative so far.ext MRI results are as noted in the HPI. Chest x-ray was read as a normal film. Medical - DS: A/P - Patient/Caregiver Discharge Instructions Activity: as per physical therapy Diet: Regular Diet Prescriptions: Amoxicillin/Potassium Clav [Augmentin] 875 mg PO Q12H #20 tablet Oseltamivir Phosphate [Tamiflu] 75 mg PO BID #7 capsule Other Amb Orders: OT Discharge Order Location: Determined By Patient Physical Therapy at Discharge - General Location: Determined By Patient - Follow up Plan Follow up with: Sridhar Ricketts MD [Primary Care Provider] - (Call and schedule a follow up.) Disposition: [facility] SNF Prognosis: Fair Rehab Potential: Fair I certify that the patient requires SNF services: Yes Overall status at discharge: patient is progressing back to baseline Medical - DS: Qual - VTE Deep Vein Thrombosis/Pulmonary Embolism Present on Admission: No
[2016-09-14] MEDS: IBUPROFEN 200 MG TABLET PO PRN (11:24)
== END 2016-09-14 12:10 ==
LOC: ED 12:47 → MEDSUR 12:47 → SUATTDRO 18:00
PROVIDERS: ADMIT Internal Medicine; ATTEND Internal Medicine